=== PATIENT | female | born 1990 | race Caucasian/White ===

== ENCOUNTER 2018-08-28 17:44 | Emergency (ER) | payer MEDICAID ==
[~2018-08-28] VITALS: Ht 157.5 cm; Wt 56.0 kg
[2018-08-28 18:03] VITALS: Ht 157.5 cm; Wt 56.0 kg
[2018-08-28] MEDS ORDERED: ACETAMINOPHEN 325 MG TAB PO STA (20:25)
--- NOTE | 2018-08-28 20:27 | ERD ---
ER Documentation Chief Complaint Chief Complaint 4 WEEKS PREG WITH AP & BACK PAIN, DENIES BLEEDING HPI 28-year-old female, with LMP 08/02/18 and established care at [facility]. The patient refers right pelvic pain, radiating to the back, no vaginal bleeding, no nausea or vomiting, no fever or chills. ROS All systems reviewed and are negative except as per history of present illness. Medications Home Meds Active Scripts Acetaminophen* (Tylenol*) 325 Mg Tablet, 2 TAB PO Q8 PRN for PAIN AND OR ELEVATED TEMP, #20 TAB Prov:HEATHER GALIICA MD 08/28/18 Allergies Allergies: Coded Allergies: No Known Allergy (Unverified , 08/28/18) PMhx/Soc Medical and Surgical Hx: pt denies Medical Hx, pt denies Surgical Hx Hx Alcohol Use: No Hx Substance Use: No Hx Tobacco Use: No Smoking Status: Never smoker Physical Exam Vitals Vital Signs Date Temp Pulse Resp B/P (MAP) Pulse Ox O2 O2 Flow FiO2 Time Delivery Rate 08/28/18 99.3 82 18 150/69 99 18:03 (96) Physical Exam Const: No acute distress Head: Atraumatic Eyes: Normal Conjunctiva ENT: Normal External Ears, Nose and Mouth. Neck: Full range of motion. No meningismus. Resp: Clear to auscultation bilaterally Cardio: Regular rate and rhythm, no murmurs Abd: Soft, non tender, non distended. Normal bowel sounds Skin: No petechiae or rashes Back: No midline or flank tenderness Ext: No cyanosis, or edema Neur: Awake and alert Psych: Normal Mood and Affect Result Diagram: 08/28/182034 Results 24 hrs Laboratory Tests Test 08/28/18 20:35 08/28/18 20:40 08/28/18 20:46 White Blood Count 13.7 10^3/ul Red Blood Count 4.26 10^6/ul Hemoglobin 12.5 g/dl Hematocrit 39.3 % Mean Corpuscular Volume 92.3 fl Mean Corpuscular Hemoglobin 29.3 pg Mean Corpuscular 31.8 g/dl Hemoglobin Concent Red Cell Distribution Width 12.0 % Platelet Count 337 10^3/UL Mean Platelet Volume 10.6 fl Immature Granulocytes % 0.400 % Neutrophils % 65.9 % Lymphocytes % 20.8 % Monocytes % 11.0 % Eosinophils % 1.5 % Basophils % 0.4 % Nucleated Red Blood Cells % 0.0 /100WBC Immature Granulocytes # 0.060 10^3/ul Neutrophils # 9.0 10^3/ul Lymphocytes # 2.8 10^3/ul Monocytes # 1.5 10^3/ul Eosinophils # 0.2 10^3/ul Basophils # 0.1 10^3/ul Nucleated Red Blood Cells # 0.0 10^3/ul Beta HCG, Quantitative 5499.4 mIU/ml Urine Color YELLOW Urine Clarity SLIGHTLY CLOUDY Urine pH 6.0 Urine Specific [place] 1.023 Urine Ketones NEGATIVE mg/dL Urine Nitrite NEGATIVE mg/dL Urine Bilirubin NEGATIVE mg/dL Urine Urobilinogen 1+ mg/dL Urine Leukocyte Esterase NEGATIVE James/ul Urine Microscopic RBC 2 /HPF Urine Microscopic WBC 2 /HPF Urine Squamous Epithelial Cells FEW /HPF Urine Bacteria FEW /HPF Urine Mucus FEW /HPF Urine Hemoglobin NEGATIVE mg/dL Urine Glucose NEGATIVE mg/dL Urine Total Protein NEGATIVE mg/dl Bedside Urine pH (LAB) 6.0 Bedside Urine Protein (LAB) Negative Bedside Urine Glucose (UA) Negative Bedside Urine Ketones (LAB) Negative Bedside Urine Blood Trace-intact Bedside Urine Nitrite (LAB) Negative Bedside Urine Leukocyte Esterase Negative (L Current Medications Medications Dose Sig/Sai Start Time Status Last (Trade) Ordered Route PRN Stop Time Admin Dose Reason Admin 650 mg ONCE STAT 08/28/18 DC 08/28/18 Acetaminophen PO 20:25 20:42 (Tylenol 08/28/18 20:29 Tab) Patient: KAREN NG : 1990 Age: 28 Sex: F MR #: [id number] DOS: 08/28/182024 Ordering MD: HEATHER GALICIA MD Location: [facility] Room/Bed: PROCEDURE: US Pelvis/OB. CLINICAL INDICATION: vaginal bleeding TECHNIQUE: Multiple sonographic images of the pelvis were obtained utilizing a transabdominal and endovaginal technique. The images were reviewed on a PACS workstation. COMPARISON: None. FINDINGS: There is a small cystic structure within the endometrium measuring 0.5 cm which would correspond to a calculated gestational age of 5 weeks and 0 days. No pole or yolk sac is yet visualized. There is a 1.8 x 3.5 cm hypoechoic area adjacent to the gestational sac. There is Doppler flow in the ovaries. The right ovary measures 3.0 x 2.5 x 2.8 cm. There is a 1.2 cm simple cyst in the right ovary. The left ovary measures 2.1 x 1.5 cm. No significant free fluid is present within the pelvis. RPTAT: AA IMPRESSION: Possible early intrauterine at 5 weeks and 0 days. No pole or yolk sac is yet visualized. Large area of subchorionic hemorrhage. Close followup ultrasound and hCG is recommended. Procedures/MDM Vital signs stable, Physical exam unremarkable. Differential diagnosis include but not limited to: UTI, threatening , incomplete versus complete , ectopic , physiologic implantation bleeding, molar . Physical examination and clinical presentation most likely consistent with early , low suspicion for acute abdomen but is still is a possibility, therefore, the patient was told to return in 12 hours for persistent symptoms. During the ED course the patient remained hemodynamically stable and asymptomatic. Results and clinical impression discussed with patient who agrees with management. The patient is stable to be treated outpatient and will be discharged home with close monitoring and follow-up in 2 days with her primary physician. Bed rest and pelvic rest recommended until further medical evaluation. The patient was instructed regarding the outcomes and the potential complications like severe bleeding and . If the patient presents severe bleeding or pain, she was instructed to return to the hospital immediately. Disclaimer: Inadvertent spelling and grammatical errors are likely due to EHR/dictation software use and do not reflect on the overall quality of patient care. Also, please note that the electronic time recorded on this note does not necessarily reflect the actual time of the patient encounter. Departure Diagnosis: Primary Impression: Early stage of Condition: Stable Additional Instructions: Muchas jeremiah por [facility] para wiggins servicio. Esperamos que en wiggins visita a la simon de emergencia wiggins problema medico haya sido solucionado y que se sienta mucho mejor. Para estar seguros que wiggins mejoria sigue en proceso, le pedimos el favor de hacer jay janine de seguimiento medico con wiggins doctor primario en los proximos 2-4 de la torre. Lleve con usted estos documentos y las medicinas recetadas. Si kajal sintomas empeoran, NO SE ESPERE, por favor regrese a simon de emergencia INMEDIATAMENTE. En stuart que usted no tenga un mdico de atencin primaria: Llame al mdico o clnica comunitaria de referencia que aparece abajo homer las horas de consultorio para hacer jay janine para que le vean. CLINICAS: [facility] [phone] [facility] [phone] [facility] [phone] [facility] [phone] [place] [id number] [phone] [facility]. [phone] HEATHER PAYAN MD Aug 28, 2018 20:27
[2018-08-28] MEDS ORDERED: ACET325T33 PO (22:20)
[2018-08-28 22:33] VITALS: BP 138/64; PULSE 73; RESP 18
== END 2018-08-28 22:33 | disposition home or self-care (01) ==
LOC: FTE 17:44
DX: O99.89 Other specified diseases and conditions complicating pregnancy, childbirth and the puerperium (principal); M54.9 Dorsalgia, unspecified; R10.2 Pelvic and perineal pain; Z3A.01 Less than 8 weeks gestation of pregnancy
CPT/HCPCS: 36415; 76801; 76817; 81001; 81003; 84702; 85025; Z7502; Z7610

== ENCOUNTER 2018-09-06 11:39 | Emergency (ER) | payer MEDICAID ==
[~2018-09-06] VITALS: Ht 152.4 cm; Wt 53.9 kg
[~2018-09-06 11:39] MED LIST: ACET325T33 PO
[2018-09-06 11:48] VITALS: Ht 152.4 cm; Wt 53.9 kg
[2018-09-06] MEDS ORDERED: FAMOTIDINE 20 MG INJ IV STA (16:24)
[2018-09-06] MEDS ORDERED: SOD CHLORIDE 0.9% 1,000 ML IV STA (16:24)
[2018-09-06] MEDS ORDERED: METOCLOPRAMIDE 10 MG INJ IV STA (16:24)
--- NOTE | 2018-09-06 16:35 | ERD ---
ER Documentation Chief Complaint Chief Complaint epigastric pain, vomiting x 3 days (6wk ) HPI This is a 28-year-old female, who presents at roughly 6 weeks with complaints of epigastric pain that is been off and on for the past 3 days. Patient has a history of heartburn and states that it feels like heartburn. Patient admits to having nausea with multiple episodes of nonbilious nonbloody vomiting. Patient also admits to diarrhea, mild dysuria. Patient's last menstrual period was 07-27-18. Patient has not been seen by OB doctor. Denies fever, chills, hematemesis, hemoptysis, melena, hematochezia, chest pain, shortness breath, trouble breathing, vaginal pain, vaginal discharge, dysuria, hematuria, and vaginal bleeding. ROS All systems reviewed and are negative except as per history of present illness. Medications Home Meds Active Scripts Acetaminophen* (Tylenol*) 325 Mg Tablet, 2 TAB PO Q8 PRN for PAIN AND OR ELEVATED TEMP, #20 TAB Prov:HEATHER GALICIA MD 08/28/18 Allergies Allergies: Coded Allergies: No Known Allergy (Unverified , 08/28/18) PMhx/Soc Medical and Surgical Hx: pt denies Medical Hx, pt denies Surgical Hx Hx Alcohol Use: No Hx Substance Use: No Hx Tobacco Use: No Smoking Status: Never smoker FmHx Family History: No diabetes Physical Exam Vitals Vital Signs Date Temp Pulse Resp B/P (MAP) Pulse Ox O2 O2 Flow FiO2 Time Delivery Rate 09/06/18 98.2 81 16 118/59 99 11:48 (78) Physical Exam Physical Exam Vitals signs: Reviewed by me. General: Well developed, well nourished, in no acute distress. Patient is awake and alert. Head: Normocephalic, atraumatic. Eyes: Normal conjunctiva, Pupils PERRLA, EOM intact grossly ENT: Pharynx is clear, Moist mucous membranes, external ears, nose and mouth normal Neck: Supple, no masses, lymphadenopathy or JVD Respiratory: Clear to auscultation bilaterally with no wheezing, rhonchi, rales, no distress Cardiovascular: RRR, no murmurs, rubs, or gallops Abdominal: Soft, nondistended, no peritoneal signs, no rigidity, no surgical abdomen, bowel sounds present all 4 quadrants, mild tenderness palpation in e pigastric region, nontender to palpation all other regions, no suprapubic tenderness, no rebound tenderness, McBurney's point nontender, Rubin sign negative Back: No midline tenderness. No flank tenderness Neurologic: Alert and oriented, moving all extremities, normal speech, no focal weakness, no cerebellar signs. Normal mentation Skin: warm and dry, No rash Psych: Normal mood Result Diagram: 09/06/18 1634 09/06/18 1634 Results 24 hrs Laboratory Tests Test 09/06/18 16:34 09/06/18 16:51 09/06/18 17:08 White Blood Count 12.5 10^3/ul Red Blood Count 4.47 10^6/ul Hemoglobin 13.4 g/dl Hematocrit 40.2 % Mean Corpuscular Volume 89.9 fl Mean Corpuscular Hemoglobin 30.0 pg Mean Corpuscular 33.3 g/dl Hemoglobin Concent Red Cell Distribution Width 11.6 % Platelet Count 337 10^3/UL Mean Platelet Volume 10.3 fl Immature Granulocytes % 0.500 % Neutrophils % 82.5 % Lymphocytes % 10.9 % Monocytes % 5.7 % Eosinophils % 0.1 % Basophils % 0.3 % Nucleated Red Blood Cells % 0.0 /100WBC Immature Granulocytes # 0.060 10^3/ul Neutrophils # 10.4 10^3/ul Lymphocytes # 1.4 10^3/ul Monocytes # 0.7 10^3/ul Eosinophils # 0.0 10^3/ul Basophils # 0.0 10^3/ul Nucleated Red Blood Cells # 0.0 10^3/ul Sodium Level 139 mmol/L Potassium Level 3.5 mmol/L Chloride Level 101 mmol/L Carbon Dioxide Level 21 mmol/L Anion Gap 17 Blood Urea Nitrogen 13 mg/dl Creatinine 0.51 mg/dl Est Glomerular Filtrat > 60 mL/min Rate mL/min Glucose Level 93 mg/dl Calcium Level 10.0 mg/dl Total Bilirubin 0.3 mg/dl Direct Bilirubin 0.00 mg/dl Indirect Bilirubin 0.3 mg/dl Aspartate Amino 29 IU/L Transf (AST/SGOT) Alanine 39 IU/L Aminotransferase (ALT/SGPT) Alkaline Phosphatase 66 IU/L Total Protein 8.5 g/dl Albumin 5.1 g/dl Globulin 3.40 g/dl Albumin/Globulin Ratio 1.50 Lipase 36 U/L Beta HCG, Quantitative 68665.0 mIU/ml Urine Color SACHA Urine Clarity SLIGHTLY CLOUDY Urine pH 5.0 Urine Specific [place] 1.029 Urine Ketones 2+ mg/dL Urine Nitrite NEGATIVE mg/dL Urine Bilirubin NEGATIVE mg/dL Urine Urobilinogen 2+ mg/dL Urine Leukocyte Esterase NEGATIVE James/ul Urine Microscopic RBC 5 /HPF Urine Microscopic WBC 3 /HPF Urine Squamous Epithelial Cells FEW /HPF Urine Mucus MANY /HPF Urine Hemoglobin NEGATIVE mg/dL Urine Glucose NEGATIVE mg/dL Urine Total Protein 1+ mg/dl POC Beta HCG, Qualitative POSITIVE Current Medications Medications Dose Sig/Sai Start Time Status Last (Trade) Ordered Route PRN Stop Time Admin Dose Reason Admin Sodium 1,000 ml @ Q1H STAT 09/06/18 DC 09/06/18 Chloride 1,000 mls/hr IV 16:24 09/06/18 16:53 17:23 10 mg ONCE STAT 09/06/18 DC 09/06/18 Metoclopramid IV 16:24 09/06/18 16:53 e HCl 16:28 (Reglan) Famotidine 20 mg ONCE STAT 09/06/18 DC 09/06/18 (Pepcid Iv) IV 16:24 09/06/18 16:53 16:28 Procedures/MDM EKG, MONITORS, & DIAGNOSTIC IMAGING: [place] [address] Radiology Main Line: [phone] DIAGNOSTIC IMAGING REPORT Patient: KAREN NG : 1990 Age: 28 Sex: F MR #: [id number] DOS: 09/06/18 1624 Ordering MD: JESSICA VINCENT PA-C Location: FT Room/Bed: PROCEDURE: US Abdomen. CLINICAL INDICATION: abdominal pain TECHNIQUE: Multiple real-time images were acquired of the patient's right upper quadrant abdomen and retroperitoneum utilizing a high resolution transducer. COMPARISON: None FINDINGS: The liver demonstrates normal echogenicity. The liver is normal in size and no focal solid lesions are seen. The liver measures 13 cm in length. The portal vein is patent with normal direction of flow. No intrahepatic biliary dilat ation is seen. Multiple calcified gallstones are identified within the gallbladder. There is no pericholecystic fluid or gallbladder wall thickening. The common bile duct measures 4 mm in maximal dimension. The visualized portions of the pancreas are unremarkable. The tail of the pancreas is not seen. No free fluid is identified. The right kidney is normal in size, and demonstrate normal echogenicity and cortical thickness. The right kidney measures 11.1 cm in long dimension. There is no evidence of hydronephrosis. There are no kidney stones. RPTAT: AA IMPRESSION: Cholelithiasis. .Ermias Shirley MD, MD Date Time Electronically viewed and signed by .Ermias Shirley MD, on 09/06/2018 17:26 .S/ CC: JESSICA VINCENT PA-C [id number] [place] [address] Radiology Main Line: [phone] DIAGNOSTIC IMAGING REPORT Patient: KAREN NG : 1990 Age: 28 Sex: F MR #: [id number] DOS: 09/06/18 1624 Ordering MD: JESSICA VINCENT PA-C Location: [facility] Room/Bed: PROCEDURE: US OB. CLINICAL INDICATION: Vaginal bleeding TECHNIQUE: Transabdominal views of the pelvis were obtained. COMPARISON: No prior studies are available for comparison. FINDINGS: There is a single intrauterine gestation with a CRL measuring 0.3 cm, corresponding to a gestational age of 5 weeks and 6 days. The heart rate is noted at 156 bpm. There is a hypoechoic fluid collection adjacent to the gestational sac, measuring 1.6 x 0.4 cm, consistent with subchorionic hemorrhage. The right ovary measures 3.0 x 2.6 x 2.8 cm. The left ovary measures 2.6 x 1.6 x 2.3 cm. No ovarian or adnexal mass lesion is seen. There is no free fluid. RPTAT: AA IMPRESSION: Single live intrauterine with an estimated gestational age of 5 weeks and 6 days, based on ultrasound measurements. Focal area of subchorionic hemorrhage. Close follow-up is recommended. .Ermias Shirley MD, MD Date Time Electronically viewed and signed by .Ermias Shirley MD, MD on 09/06/2018 17:28 .S/ CC: JESSICA VINCENT PA-C [phone] LAB INTERPRETATION: CBC is remarkable for an elevated WBC of 12.5, with an elevated neutrophil percentage of 82.5%, no decreased hemoglobin or hematocrit Chemistry shows no evidence of significant electrolyte abnormalities or renal insufficiency, mildly elevated anion gap 17 Liver function test shows no evidence of acute biliary or hepatic dysfunction Lipase shows no evidence of acute pancreatitis Beta hCG [address]4463, positive test Urinalysis is remarkable for 3 WBC, 5 RBC, no leukocyte esterase and no nitrite Patient is blood type O+ ER COURSE: The patient was given famotidine, GI cocktail, Reglan and IV normal saline The medication was well tolerated and the patient reports improvement in symptoms. The patient was stable throughout ED course. I kept the patient and/or family informed of laboratory and diagnostic imaging results throughout the emergency room course. The patient was promptly evaluated and a treatment plan was devised based on H&P and other data. This plan was discussed with the patient who agreed and had no further questions or concerns prior to discharge. MEDICAL DECISION MAKING: This is a 28-year-old female, who presents at roughly 6 weeks with complaints of epigastric pain that is been off and on for the past 3 days. Patient has a history of heartburn and states that it feels like heartburn. Patient admits to having nausea with multiple episodes of nonbilious nonbloody vomiting. Patient also admits to diarrhea, mild dysuria. Differential diagnosis includes but is not limited to gastritis, gastroenteritis, GERD, heartburn, biliary colic, cholecystitis, cholangitis, pancreatitis, among others. Given patient's description that it feels like heartburn I believe that this is more of a GERD or gastroenteritis given nausea vomiting and diarrhea. Ultrasound of the right upper quadrant shows cholelithiasis without any evidence of cholecystitis. Ultrasound OB shows a single live intrauterine . Patient does have some mild dysuria and given the 5 microscopic WBCs seen in urine we will treat her for UTI. Patient had improvement in her vomiting without active vomiting throughout ED course. Patient has no lower abdominal pain to suggest ectopic vaginal bleeding. She will discharged home with a prescription of Reglan, primary care follow-up and return precautions. Patient was advised to follow-up with OB specialist in the next 48 hours. Patient was given copies of all imaging and blood work done in the emergency department and given referral information for OB. Current signs or symptoms do not suggest ectopic , acute abdomen, appendicitis, PID, tubal ovarian abscess. The patient was stable with no new complaints during the ER course. Clinically, there is no current ev idence to suggest meningitis, sepsis, acute abdomen, pneumonia, stroke, acute coronary syndrome, pulmonary embolism, aortic dissection or any other emergent condition appearing to require further evaluation or hospitalization. The patient should certainly return for any new or worsening symptoms per the aftercare instructions. They should otherwise follow-up with her primary care doctor for reevaluation this week. DISPOSITION PLAN: We discussed follow up with the patient's primary care doctor within 24 to 48 hours. Patient counseled regarding my diagnostic impression and care plan. Prior to discharge all questions answered. Pt agrees with treatment plan and understands strict return precautions. Precautionary instructions provided including instructions to return to the ER if not improving or for any worsening or changing symptoms or concerns. SPECIALIST FOLLOW UP RECOMMENDED: None Patient has been advised to follow up with primary care in 1-2 days. Disclaimer: Inadvertent spelling and grammatical errors are likely due to EHR/dictation software use and do not reflect on the overall quality of patient care. Also, please note that the electronic time recorded on this note does not necessarily reflect the actual time of the patient encounter. Departure Diagnosis: Primary Impression: Epigastric pain Additional Impressions: Nausea & vomiting Vomiting type: unspecified Vomiting Intractability: non-intractable Qualified Codes: R11.2 - Nausea with vomiting, unspecified Diarrhea Diarrhea type: unspecified type Qualified Codes: R19.7 - Diarrhea, unspecified First trimester Cholelithiasis Cholelithiasis location: other site Biliary obstruction: without biliary obstruction Qualified Codes: K80.80 - Other cholelithiasis without obstruction Condition: Stable Patient Instructions: Adapting to : First Trimester, Biliary Colic With Gallstone (Confirmed), Gastroenteritis, Viral (6Y-Adult), Gastroesophageal Reflux Disease (GERD), Understanding Urinary Tract Infections (UTIs) Referrals: [facility] REFERRAL LIST Additional Instructions: Paciente aconseja volver a Departamento de urgencias inmediatamente para sntomas nuevos o que empeoran . Paciente aconseja posteriores con el PCP en 1-2 zuniga . Paciente verbaliza la comprehensin y est de acuerdo con el tratamiento y el curso de accin. Si el paciente no tiene ninguna de atencin primaria pueden seguir con [facility] [address] [place] [address] o [facility] + [address] [address] JESSICA VINCENT PA-C Sep 06, 2018 16:35
[2018-09-06] MEDS ORDERED: METO10TA92 PO (18:09)
[2018-09-06] MEDS ORDERED: FAMO-96 PO (18:09)
[2018-09-06] MEDS ORDERED: ACET500C5 PO (18:09)
[2018-09-06] MEDS ORDERED: CEPH-443 PO (18:21)
[2018-09-06 18:27] VITALS: BP 140/83; PULSE 88; RESP 17
== END 2018-09-06 18:28 | disposition home or self-care (01) ==
LOC: FTE 11:39
DX: O26.891 Other specified pregnancy related conditions, first trimester (principal); R10.13 Epigastric pain; O21.9 Vomiting of pregnancy, unspecified; R19.7 Diarrhea, unspecified; O99.611 Diseases of the digestive system complicating pregnancy, first trimester; K80.80 Other cholelithiasis without obstruction; Z3A.01 Less than 8 weeks gestation of pregnancy
CPT/HCPCS: 76705; 76801; 76817; 80053; 81001; 81025; 83690; 84702; 85025; 86900; 86901; 87086; J2765; J7030; Z7610; 36415; 96361; 96374; 96375

== ENCOUNTER 2018-09-15 00:02 | Emergency (ER) | payer MEDICAID ==
[~2018-09-15] VITALS: Ht 154.9 cm; Wt 53.3 kg
[~2018-09-15 00:02] MED LIST changes: +ACET500C5 PO; +CEPH-443 PO; +FAMO-96 PO; +METO10TA92 PO
[2018-09-15 00:23] VITALS: Ht 154.9 cm; Wt 53.3 kg
[2018-09-15] MEDS ORDERED: ACET325T33 PO (07:41)
[2018-09-15 07:58] VITALS: BP 102/53; PULSE 73; RESP 18
--- NOTE | 2018-09-15 08:24 | ERD ---
ER Documentation Chief Complaint Chief Complaint C/O EPIGASTRIC AP W/ VOMITING X3HRS, HX OF GASTRITIS, 6WEEKS PREG HPI 28-year-old female presenting with epigastric pain times 3 hours. Patient is 6 weeks . She denies any chest pain or shortness of breath. She has had a few episodes of vomiting. She denies any vaginal bleeding. Denies pelvic pressure or pain. She states that the pain is constant. Has not taken medic ations for symptoms. Denies medical problems. NKDA. Surgical history denies. Social history denies ROS All systems reviewed and are negative except as per history of present illness. Medications Home Meds Active Scripts Acetaminophen* (Tylenol*) 325 Mg Tablet, 2 TAB PO Q6 PRN for PAIN AND OR ELEVATED TEMP, #20 TAB Prov:KAREN SHERMAN PA-C 09/15/18 Cephalexin* (Keflex*) 500 Mg Capsule, 500 MG PO BID for 7 Days, CAP Prov:JESSICA VINCENT PA-C 09/06/18 Famotidine* (Pepcid*) 20 Mg Tablet, 20 MG PO DAILY for 4 Days, TAB Prov:JESSICA VINCENT PA-C 09/06/18 Acetaminophen* (Tylophen*) 500 Mg Capsule, 1 CAP PO Q6H PRN for PAIN AND OR ELEVATED TEMP, #20 CAP Prov:JESSICA VINCENT PA-C 09/06/18 Metoclopramide* (Reglan*) 10 Mg Tablet, 10 MG PO Q6 PRN for NAUSEA AND/OR VOMITING, #10 TAB Prov:JESSICA VINCENT PA-C 09/06/18 Acetaminophen* (Tylenol*) 325 Mg Tablet, 2 TAB PO Q8 PRN for PAIN AND OR ELEVATED TEMP, #20 TAB Prov:HEATHER GALICIA MD 08/28/18 Allergies Allergies: Coded Allergies: No Known Allergy (Unverified , 09/15/18) PMhx/Soc Medical and Surgical Hx: pt denies Medical Hx, pt denies Surgical Hx Hx Alcohol Use: No Hx Substance Use: No Hx Tobacco Use: No FmHx Family History: No diabetes, No coronary disease, No other Physical Exam Vitals Vital Signs Date Temp Pulse Resp B/P (MAP) Pulse Ox O2 O2 Flow FiO2 Time Delivery Rate 09/15/18 98.7 73 18 102/53 99 Room Air 07:58 (69) 09/15/18 98.3 72 19 121/59 98 00:23 (79) Physical Exam GENERAL: The patient is well-appearing, well-nourished, in no acute distress HEENT: Atraumatic. Conjunctivae are pink. Pupils equal, round, and reactive to light. There is no scleral icterus. Tympanic membranes clear bilaterally. Oropharynx clear. NECK: C-spine is soft and supple. There is no meningismus. There is no ce rvical lymphadenopathy. CHEST: Clear to auscultation bilaterally. There are no rales, wheezes or rhonchi. HEART: Regular rate and rhythm. No murmurs, clicks, rubs or gallops. No S3 or S4. ABDOMEN: Normal active bowel sounds. No distention. No organomegaly. Mild test palpation in the epigastric region. BACK: No midline or flank tenderness. Result Diagram: 09/15/18 0640 09/15/18 0640 Results 24 hrs Laboratory Tests Test 09/15/18 06:40 09/15/18 06:41 09/15/18 06:49 White Blood Count 13.1 10^3/ul Red Blood Count 4.24 10^6/ul Hemoglobin 12.7 g/dl Hematocrit 37.5 % Mean Corpuscular Volume 88.4 fl Mean Corpuscular Hemoglobin 30.0 pg Mean Corpuscular 33.9 g/dl Hemoglobin Concent Red Cell Distribution Width 11.5 % Platelet Count 330 10^3/UL Mean Platelet Volume 10.6 fl Immature Granulocytes % 0.600 % Neutrophils % 76.1 % Lymphocytes % 15.1 % Monocytes % 7.2 % Eosinophils % 0.5 % Basophils % 0.5 % Nucleated Red Blood Cells % 0.0 /100WBC Immature Granulocytes # 0.080 10^3/ul Neutrophils # 9.9 10^3/ul Lymphocytes # 2.0 10^3/ul Monocytes # 0.9 10^3/ul Eosinophils # 0.1 10^3/ul Basophils # 0.1 10^3/ul Nucleated Red Blood Cells # 0.0 10^3/ul Sodium Level 140 mmol/L Potassium Level 3.9 mmol/L Chloride Level 105 mmol/L Carbon Dioxide Level 23 mmol/L Anion Gap 12 Blood Urea Nitrogen 7 mg/dl Creatinine 0.45 mg/dl Est Glomerular Filtrat > 60 mL/min Rate mL/min Glucose Level 87 mg/dl Calcium Level 10.2 mg/dl Total Bilirubin 0.4 mg/dl Direct Bilirubin 0.00 mg/dl Indirect Bilirubin 0.4 mg/dl Aspartate Amino 40 IU/L Transf (AST/SGOT) Alanine 80 IU/L Aminotransferase (ALT/SGPT) Alkaline Phosphatase 71 IU/L Total Protein 8.2 g/dl Albumin 4.8 g/dl Globulin 3.40 g/dl Albumin/Globulin Ratio 1.41 Lipase 40 U/L Urine Color SACHA Urine Clarity CLOUDY Urine pH 6.0 Urine Specific Brigantine 1.029 Urine Ketones NEGATIVE mg/dL Urine Nitrite NEGATIVE mg/dL Urine Bilirubin NEGATIVE mg/dL Urine Urobilinogen 1+ mg/dL Urine Leukocyte Esterase NEGATIVE James/ul Urine Microscopic RBC 3 /HPF Urine Microscopic WBC 3 /HPF Urine Squamous Epithelial Cells MANY /HPF Urine Mucus MODERATE /HPF Urine Hemoglobin NEGATIVE mg/dL Urine Glucose NEGATIVE mg/dL Urine Total Protein NEGATIVE mg/dl POC Beta HCG, Qualitative POSITIVE Procedures/MDM DIAGNOSTIC IMAGING REPORT Patient: KAREN FREITAS : 1990 Age: 28 Sex: F MR #: [id number] DOS: 09/15/18 0608 Ordering MD: DIEGO SHERMAN PA-C [facility]: [facility] Room/Bed: PROCEDURE: US Abdomen. CLINICAL INDICATION: Pain TECHNIQUE: Multiple real-time images were acquired of the patient's abdomen and retroperitoneum utilizing a high resolution transducer. COMPARISON: None FINDINGS: Multiple gallstones. No gallbladder wall thickening or pericholecystic fluid. Co mmon bile duct normal limits in size maximal transverse diameter common bile duct normal limits in size maximal transverse diameter 4.34 mm. No intrahepatic biliary ductal dilation. Liver normal in size maximal sagittal dimension 13.07 cm. Normal liver parenchymal echogenicity without focal lesions. Pancreas unremarkable. Right kidney normal in size measuring 10.57 x 3.9 and meters. Normal right renal parenchymal echogenicity without hydronephrosis, intra renal mass or calculus. Normal portal venous flow. IMPRESSION: 1. Multiple gallstones without gallbladder wall thickening or pericholecystic fluid. No biliary ductal dilation. 2. Unremarkable liver pancreas and right kidney. MDM: 28-year-old female presenting with epigastric pain. Patient has findings consistent with gallstones. I have low suspicion for choledocholithiasis, cholecystitis or pancreatitis. Patient is discharged with stricter precautions. I have low suspicion for cardiac or pulmonary emergency. Patient is told if symptoms change or worsen to return immediately to the ER. All questions answered at discharge Departure Diagnosis: Primary Impression: Gallstones Condition: Stable Patient Instructions: Gallstones Referrals: [facility] YOU HAVE RECEIVED A MEDICAL SCREENING EXAM AND THE RESULTS INDICATE THAT YOU DO NOT HAVE A CONDITION THAT REQUIRES URGENT TREATMENT IN THE EMERGENCY DEPARTMENT. FURTHER EVALUATION AND TREATMENT OF YOUR CONDITION CAN WAIT UNTIL YOU ARE SEEN IN YOUR DOCTORS OFFICE WITHIN THE NEXT 1-2 DAYS. IT IS YOUR RESPONSIBILITY TO MAKE AN APPOINTMENT FOR FOLOW-UP CARE. IF YOU HAVE A PRIMARY DOCTOR --you should call your primary doctor and schedule an appointment IF YOU DO NOT HAVE A PRIMARY DOCTOR YOU CAN CALL OUR PHYSICIAN REFERRAL HOTLINE AT IF YOU CAN NOT AFFORD TO SEE A PHYSICIAN YOU CAN CHOSE FROM THE FOLLOWING [facility] [address] [facility] [address] [facility] [facility] [address] [facility] [address] [facility] [address] [facility]. [address] Additional Instructions: FOLLOW UP WITH YOUR PRIMARY CARE PHYSICIAN TOMORROW.Return to this facility if you are not improving as expected. KAREN SHERMAN PA-C Sep 15, 2018 08:24
== END 2018-09-15 07:59 | disposition home or self-care (01) ==
LOC: FTE 00:02
DX: O99.611 Diseases of the digestive system complicating pregnancy, first trimester (principal); K80.20 Calculus of gallbladder without cholecystitis without obstruction; Z3A.01 Less than 8 weeks gestation of pregnancy
CPT/HCPCS: 36415; 76705; 80053; 81001; 81025; 83690; 85025